=== PATIENT | female | born 1940 | race Caucasian/White ===

== ENCOUNTER 2019-04-14 06:54 | Day surgery (SDC) | payer MEDICARE ==
[~2019-04-14 06:54] MED LIST: Acetaminophen TAB* 325 MG PO PRN; Buffered Lidocaine 1% SYRIN* 1 ML/SYRINGE INTRADERM ONE
[2019-04-14] MEDS ORDERED: fentaNYL* 50 MCG/ML 2 ML VIAL (100 MCG VIAL) ONE (08:30)
[2019-04-14] MEDS ORDERED: Midazolam* 1 MG/ML 2 ML VIAL (2 MG) ONE (08:30)
[2019-04-14 09:30] VITALS: BP 137/56
--- NOTE | 2019-04-14 10:18 | OP ---
DATE OF OPERATION: 04/14/19 [facility] DATE OF : 40 SURGEON: Robby Mcclain MD HOMICIDE DETECTIVE: None. ANESTHESIA: Topical with intravenous sedation. PRE-OP DIAGNOSES: Cataract, astigmatism, glaucoma right eye. POST-OP DIAGNOSES: Cataract, astigmatism, glaucoma right eye. OPERATIVE PROCEDURE: Phacoemulsification and cataract extraction with posterior chamber Toric intraocular lens implant and iStent implant, right eye. COMPLICATIONS: None. BLOOD LOSS: None. DESCRIPTION OF PROCEDURE: The patient was brought to the operating room and received intravenous sedation. A drop of tetracaine was placed into her right eye. The patient was prepped and draped in the usual sterile fashion for ophthalmic surgery and attention was directed to the right eye, where a speculum was placed. A paracentesis was created at the 11 o'clock position and 0.1 cc of 1% preservative- free lidocaine was injected into the anterior chamber followed by DisCoVisc. The eye was digitally stabilized while a 2.75 mm keratome was used to create a triplanar clear corneal incision at the 9 o'clock position. A continuous curvilinear capsulorrhexis was created with a cystotome and Utrata forceps. BSS on a cannula was used to hydrodissect the lens from the capsule. Phacoemulsification was performed in a tadbzv-rtk-ynrlyyw technique to create 4 fragments, which were removed. Residual cortical material was removed with irrigation and aspiration. The capsular bag was polished. ProVisc was used to inflate the capsular bag and the anterior chamber. The intraocular pressure was checked with a tonometer. The surface of the eye was lubricated. The ORA device was employed. The lens choice was made. An SN6AT5 15.5 diopter lens was folded and inserted into the capsular bag. The reticle on the ORA helped to guide the axial alignment to 119 degrees. The lens was aligned at this position using a Sinskey hook. Supplemental DisCoVisc was used to deepen the anterior chamber and coat the surface of the cornea. The patient's head was rotated away from the surgeon and the microscope was rotated toward the surgeon. A gonioprism was placed in the surface of the eye. An iStent on its automobile service advisor was introduced into the anterior chamber. Under direct visualization, the iStent was inserted into the nasal trabecular meshwork. The iStent automobile service advisor and the gonioprism were removed. The patient's head and the microscope were returned to a neutral position. Irrigation and aspiration were performed, removed viscoelastic from the eye. The lens remained in the appropriate position and axial alignment. BSS on a cannula was used to hydrodissect the corneal stoma and sealed the wound. At the end of the case, the pupil was round. The lens was centered stable in axial line. The iStent was in good position. The eye pressure appeared normal and the wound was watertight. Topical Maxitrol ointment was placed in the surface of the eye. Eye was closed, patched, and shielded and the patient was sent to recovery room in stable condition with postoperative instructions and followup appointment given. [id number]/[facility] #: [id number] ELIJAH
[2019-04-14] MEDS ORDERED: Ketorolac 0.5% OPHTH (NF) 0.5 % 5 ML BTL ONE (15:34)
[2019-04-14] MEDS ORDERED: Phenylephrine OPHTH SOL 2.5%* 2 ML ONE (15:34)
[2019-04-14] MEDS ORDERED: Neomycin/Polymy/Dex OPHTH.OIN* 3.5 GM ONE (15:34)
[2019-04-14] MEDS ORDERED: Cyclopentolate 1% OPTH.SOL* 2 ML BTL ONE (15:34)
[2019-04-14] MEDS ORDERED: Tropicamide 1% OPTH.SOL* BTL ONE (15:34)
[2019-04-14] MEDS ORDERED: Lidocaine 1% MPF ** 5 ML VIAL ONE (15:34)
[2019-04-14] MEDS ORDERED: Tetracaine 0.5% OPTH.SOL 4 ML* 1 DROP BTL ONE (15:34)
== END 2019-04-14 10:05 | disposition home or self-care (01) ==
LOC: OREAST 06:54
PROVIDERS: ATTEND Ophthalmology
DX: H25.11 Age-related nuclear cataract, right eye (principal); H40.1111 Primary open-angle glaucoma, right eye, mild stage; H52.201 Unspecified astigmatism, right eye
CPT/HCPCS: A9270-GY; C1783; J2250; J3010; V2787

== ENCOUNTER 2019-04-21 06:57 | Day surgery (SDC) | payer MEDICARE ==
[2019-04-21] MEDS ORDERED: Midazolam* 1 MG/ML 2 ML VIAL (2 MG) ONE (07:35)
[2019-04-21] MEDS ORDERED: fentaNYL* 50 MCG/ML 2 ML VIAL (100 MCG VIAL) ONE (07:35)
[2019-04-21 08:34] VITALS: BP 149/64
--- NOTE | 2019-04-21 09:11 | OP ---
DATE OF OPERATION: 04/21/19 [facility] DATE OF : 40 SURGEON: Dr. Robby Mcclain SENIOR ANDROID DEVELOPER: None. ANESTHESIA: Topical with intravenous sedation. PRE-OP DIAGNOSES: Cataract with astigmatism, left eye and glaucoma, left eye. POST-OP DIAGNOSES: Cataract with astigmatism, left eye and glaucoma, left eye. OPERATIVE PROCEDURE: Cataract extraction with toric posterior chamber intraocular lens implant and iStent implant, left eye. COMPLICATIONS: None. BLOOD LOSS: None. DESCRIPTION OF PROCEDURE: The patient was brought to the operating room and received intravenous sedation. A drop of tetracaine was placed in her left eye. The patient was prepped and draped in the usual sterile fashion for ophthalmic surgery. Attention was again directed to the left eye where a speculum was placed. A paracentesis was created at the 5 o'clock position. 0.1 cc of 1% perseverative-free lidocaine was injected into the anterior chamber followed by DisCoVisc. The eye was digitally stabilized while a 2.75 mm keratome was used to create a triplanar clear corneal incision at the 3 o'clock position. A continuous curvilinear capsulorrhexis was created with the cystotome and Utrata forceps. BSS on a cannula was used to hydrodissect the lens from the capsule. Phacoemulsification was performed in a tevopj-lwa-thikwqp technique to create four fragments, which were removed. Residual cortical material was removed with irrigation and aspiration. The capsular bag was polished. Provisc was used to inflate the capsular bag. The intraocular pressure was measured with a tonometer. The surface of the eye was lubricated with BSS. The ORA device was employed. The lens chosen was an SN6AT5 19 diopter lens. This lens was folded and inserted into the capsular bag. The reticle on the ORA guided the axial alignment. At this point, supplemental DisCoVisc was used to deepen the anterior chamber as well as to coat the surface of the cornea. The patient's head was rotated away from the surgeon and the microscope was rotated toward the surgeon. A corneal prism was placed in the surface of the eye. An iStent on its sausage tier was introduced in to the anterior chamber. Under direct visualization, the iStent was inserted into the nasal tubercular meshwork. The sausage tier and the corneal prism were removed. The patient's head and microscope were rotated toward neutral position. DisCoVisc and Provisc were removed from the eye using irrigation and aspiration. The lens remained axially aligned. BSS and the cannula were used to hydrate the corneal stroma and seal the wound. At the end of the case, the pupil was round. The lens was centered stable and aligned. The iStent was moved in position. The eye pressure appeared normal and the wound was watertight. The speculum was removed and topical Maxitrol ointment was placed on the surface of the eye. The eye was closed, patched and shielded, and the patient was sent to the recovery room in stable condition with postoperative instructions and followup appointment given. [id number]/[facility] #: [id number] ELIJAH
[2019-04-21] MEDS ORDERED: Lidocaine 1% MPF ** 5 ML VIAL ONE (12:08)
[2019-04-21] MEDS ORDERED: Neomycin/Polymy/Dex OPHTH.OIN* 3.5 GM ONE (12:08)
[2019-04-21] MEDS ORDERED: Cyclopentolate 1% OPTH.SOL* 2 ML BTL ONE (12:08)
[2019-04-21] MEDS ORDERED: Phenylephrine OPHTH SOL 2.5%* 2 ML ONE (12:08)
[2019-04-21] MEDS ORDERED: Tropicamide 1% OPTH.SOL* BTL ONE (12:08)
[2019-04-21] MEDS ORDERED: Tetracaine 0.5% OPTH.SOL 4 ML* 1 DROP BTL ONE (12:08)
[2019-04-21] MEDS ORDERED: Ketorolac 0.5% OPHTH (NF) 0.5 % 5 ML BTL ONE (12:08)
== END 2019-04-21 08:52 | disposition home or self-care (01) ==
LOC: OREAST 06:57
PROVIDERS: ATTEND Ophthalmology
DX: H25.12 Age-related nuclear cataract, left eye (principal); H40.1121 Primary open-angle glaucoma, left eye, mild stage; H52.202 Unspecified astigmatism, left eye; M81.0 Age-related osteoporosis without current pathological fracture
CPT/HCPCS: A9270-GY; C1783; J2250; J3010; V2787